=== PATIENT | female | born 1960 ===

== ENCOUNTER 2020-10-04 01:07 | Inpatient (IN) | payer SELFPAY ==
[~2020-10-04] VITALS: Ht 160 cm; Wt 58.5 kg
--- NOTE | 2020-10-04 01:16 | PHYS DOC ---
Past History Past Medical History: Alcoholism, COPD, Diabetes Smoking: Cigarettes Drug Use: Amphetamine, Cocaine, Marijuana General Adult EDM: Chief Complaint: COLD EXPOSURE HPI: HPI: " I don't know.. I am just cold...' Patient is a age 59year old female who presents with above hx and complaints of hypotherma. Pt. reportedly found in snow, wet and confused by Police after disturbance call of ' " arely potter" yelling. Pt. clothes all wet. Initial temp .95.7 axillary. Pt.confused and uncooperative. Pt. appears under influence of drugs. Pt. did have a crack pipe on her at time of caregiver services home arrival. Pt. very poor historian. Temp. 97.,4 her on arrival .. Pt. very poor historian. Review of Systems: Review of Systems: Constitutional: Complaints of chills Eyes: Denies change in visual acuity HENT: Denies nasal congestion or sore throat Respiratory: Hxz of cough Cardiovascular: Denies chest pain or edema GI: Denies abdominal pain, nausea, vomiting, bloody stools or diarrhea : Denies dysuria Musculoskeletal: Complains of joint pain Integument: Denies rash Neurologic: Denies headache, focal weakness or sensory changes Endocrine: Denies polyuria or polydipsia Lymphatic: Denies swollen glands Psychiatric: complains of anxiety Family History: Family History: Not currently available Current Medications: Current Meds: See Nursing for meds Allergies: Allergies: See Nursing Physical Exam: PE: Constitutional: moderate acute distress, appears under the influence of drugs HENT: Normocephalic, atraumatic, bilateral external ears normal, oropharynx moist, no oral exudates, nose normal. [] Edentulous Eyes: PERRLA, EOMI, conjunctiva normal, no discharge. [] Neck: Normal range of motion, no tenderness, supple, no stridor. [] Cardiovascular:Tachycardia Heart rate regular rhythm, no murmur [] Lungs & Thorax: Bilateral breath sounds equal apex with scattered wheezes on auscultation [] Abdomen: Bowel sounds normal, soft, no tenderness, no masses, no pulsatile masses. [] Skin: Warm, dry, no erythema, no rash. Poor tugor. Has decreased capillary return fingers and toes. Back: No tenderness, no CVA tenderness. [] Extremities: No tenderness, no cyanosis, no clubbing, ROM intact, no edema.Arthritic changes. Neurologic: Alert and oriented name, and know she at a medical area, moves all ext, has distal sensation, , obviously confused. Psychologic: Affect anxious, judgement imparied., mood normal. [] EKG: EKG: My interpretation EKG shows a sinus rate of 86. Some nonspecific contour changes, anterior septal area, no findings of acute STEMI or contralateral changes. [place] baseline [] Radiology/Procedures: Radiology/Procedures: [place] [address] IMAGING REPORT Signed PATIENT: HAM ZACARIAS ACCOUNT: [id number] : 1960 LOCATION: [address] [place] [address] AGE: 60 SEX: F EXAM STATUS: ADM IN ORD. PHYSICIAN: MARY ROGERS MD REASON: dyspnea PROCEDURE: PORTABLE CHEST 1V EXAM: XR CHEST 1V 10/04/2020 2:48 AM CLINICAL INDICATION: Dyspnea COMPARISON: None TECHNIQUE: AP upright view of the chest FINDINGS: The heart is normal in size. Thoracic aorta is ectatic or tortuous. Lungs are well-expanded and clear. No pleural effusion or pneumothorax. No acute osseous abnormality. IMPRESSION: No acute cardiopulmonary abnormality. Electronically signed by: Sigrid Becker MD (10/04/2020 5:17 AM) [id number] DICTATED AND SIGNED BY: SIGRID BECKER MD DATE: 10/04/20 0516 CC: MARY ROGERS MD; YADIRA CORDOVA MD; PCP,NO ~MTH0 0 [][address] [address] IMAGING REPORT Signed PATIENT: HAM ZACARIAS ACCOUNT: [id number] : 09/18/1961 LOCATION: ER AGE: 59 SEX: F EXAM STATUS: REG ER ORD. PHYSICIAN: MARY ROGERS MD REASON: alter mental status PROCEDURE: CT HEAD AND CERVICAL SPINE WO EXAM: CT head and cervical spine without contrast INDICATION: Altered mental status COMPARISON: None TECHNIQUE: Axial CT imaging through the head and cervical spine without intravenous contrast. Sagittal and coronal reformats were obtained. One or more of the following individualized dose reduction techniques were utilized for this examination: 1. Automated exposure control 2. Adjustment of the mA and/or kV according to patient size 3. Use of iterative reconstruction technique. FINDINGS: CT head: The ventricles and sulci are within normal limits. Gonzalez-white matter differentiation is maintained. There is no intracranial hemorrhage, acute infarct, or mass lesion. Basal cisterns are clear. The skull and scalp are intact. Paranasal sinuses and mastoid air cells are clear. Globes and orbits are intact.. CT cervical spine: No acute fracture. There is 2 mm anterolisthesis of C3 on C4, C4 on C5, and C5 on C6. Mild disc space narrowing. Multilevel facet arthrosis, greatest at C5-C6 on the left. Moderate foraminal narrowing at C3-C4 and C4-C5 on the right. Prevertebral soft tissue is normal. There is a 1 cm irregular nodule in the right apex. Mild centrilobular emphysema. IMPRESSION: 1. No acute intracranial abnormality. 2. No acute osseous abnormality. 3. 1 cm irregular pulmonary nodule in the right apex. Consider PET/CT or tissue sampling if possible to further evaluate or three-month follow-up CT to show stability. 2017 Fleischner Society guidelines for management of incidental pulmonary nodul es in adults over 35 years old. Radiology. Published online:?November 10, 2016 SINGLE SOLID NODULE <6mm Low risk*- No routine follow up High risk* - Optional CT at 12 months Comment: Nodules <6mm do not require routine follow-up, but certain patients at high risk with suspicious nodule morphology, upper lobe location, or both may warrant 12-month follow-up 6-8mm Low risk* - CT at 6-12 months, then consider CT at 18-24 months High risk* - CT at 6-12 months, then CT at 18-24 months >8mm Consider CT, PET/CT, or tissue sampling at 3 months MULTIPLE SOLID NODULES <6mm Low risk* - No routine follow-up High risk* - Optional CT at 12 months 6-8mm Low risk* - CT at 3-6 months, then consider CT at 18-24 months High risk* - CT at 3-6 months, then CT at 18-24 months >8mm Low risk* - CT at 3-6 months, then consider CT at 18-24 months High risk* - CT at 3-6 months, then CT at 18-24 months Comment: Use most suspicious nodule as guide to management. Follow-up intervals may vary according to size and risk. SUBSOLID NODULES Single < 6mm - No routine follow-up Single > 6mm - CT at 6-12 months to confirm persistence, the CT every 2 years until 5 years. Comment: In certain suspicious nodules <6mm, consider follow-up at 2 and 4 years. If solid components or growth develops, consider resection. Part solid < 6mm - No routine follow-up Part solid >6mm Ct at 3-6 months to confirm persistence. If unchanged and solid component remains <6mm, annual CT should be performed for 5 years. Comment: In practice, part-solid nodules cannot be defined as such until >6mm, and nodules <6mm do not usually require follow-up. Persistent part-solid nodules with solid components >6mm should be considered highly suspicious. Multiple <6mm - CT at 3-6 months. If stable consider CT at 2 and 4 years. Multiple >6mm - CT at 3-6 months. Subsequent management based on the most suspicious nodule. Comment: Multiple <6mm pure ground-glass nodules are usually benign, but consider follow-up in selected patients at high risk at 2 and 4 years. *Clinical risk - These guidelines for nodule management are based on estimation of the individual risk of malignancy. It is important to consider nodule size and morphology as well as smoking history, exposure to other carcinogens, emphysema, fibrosis, upper lobe location, family history of lung cancer, age, and sex is assessing clinical risk. For purposes of these guidelines it is recommended that risk be assigned according to the categories proposed by the [employer]. Low risk (less than 5%) - young age, less smoking, smaller nodule size, regular margins and location other than upper lobe. High risk (greater than 5%) - older age, heavy smoking, larger nodule size, irregular or spiculated margins and upper lobe location. Electronically signed by: Sigrid Becker MD (10/04/2020 3:45 AM) [id number] DICTATED AND SIGNED BY: SIGRID BECKER MD DATE: 10/04/20 0335 CC: MARY ROGERS MD; PCP,NO ~MTH0 0 Heart Score: HEART Score for Chest Pain: HEART Score for Chest Pain Response (Comments) Value History Moderately Suspicious 1 ECG Nonspecific Repolarizatio 1 Age >45 - < 65 1 Risk Factors 1 or 2 Risk Factors 1 Total 4 Risk Factors: Risk Factors: DM, Current or recent (<one month) smoker, HTN, HLP, family history of CAD, obesity. Risk Scores: Score 0 - 3: 2.5% MACE over next 6 weeks - Discharge Home Score 4 - 6: 20.3% MACE over next 6 weeks - Admit for Clinical Observation Score 7 - 10: 72.7% MACE over next 6 weeks - Early Invasive Strategies Course & Med Decision Making: Course & Med Decision Making Pertinent Labs and Imaging studies reviewed. (See chart for details) Critical Care:= 60 min. Discussed presentation, testing and tx plan with Dr. Cordova. Plan continue hydration. Monitor mental status. Glucose checks. Pt. mental status slowly improving. Admits to smoking Meth and Coke tonight. Know Hx. of diabetes. Pt. denies narcotic use. Pt. fall asleep with out constant noxious stimuli on questionings. Pt. advised ..." Fuck off... I need to sleep..." ".. I can't talk right now...".. " I was 'nt going.. to do shit to night..." Pt. did move all extremity on request with noxious stimuli and cross react.. 0400. Impression: 1. Hypothermia 2. Polysubstance abuse +, Coke, Meth, and MJ 3. Altered mental status 4. DM glucose 236 5. Mild Hypokalemia 6. Emphysema 7. Pulmonary Nodule Dragon Disclaimer: Dragon Disclaimer: This electronic medical record was generated, in whole or in part, using a voice recognition dictation system. Departure Departure: Referrals: PCP,NO (PCP) [place] Disclaimer This chart was dictated in whole or in part using Voice Recognition software in a busy, high-work load, and often noisy Emergency Department environment. It may contain unintended and wholly unrecognized errors or omissions. Dragon Disclaimer This chart was dictated in whole or in part using Voice Recognition software in a busy, high-work load, and often noisy Emergency Department environment. It may contain unintended and wholly unrecognized errors or omissions. MARY ROGERS MD Oct 04, 2020 01:16
[2020-10-04] MEDS ORDERED: IV RINGERS SOLUTION,LACTATED 1,000 ML IV SCH (01:30)
[2020-10-04 02:26] LABS: BASO # 0.1 x10^3/uL (0.0-0.2); BASO % 1 % (0-3); EOS # 0.2 x10^3/uL (0.0-0.7); EOS % 2 % (0-3); HEMATOCRIT 41.2 % (36.0-47.0); LYMPH # 2.2 x10^3/uL (1.0-4.8); LYMPH % 20 % (24-48); MEAN CORPUSCULAR HEMOGLOBIN 31 pg (25-35); MEAN CORPUSCULAR HGB CONC 34 g/dL (31-37); MEAN CORPUSCULAR VOLUME 92 fL (79-100); MONO # 0.7 x10^3/uL (0.0-1.1); MONO % 7 % (0-9); NEUT # 7.6 x10^3uL (1.8-7.7); NEUT % 70 % (31-73); PLATELET COUNT 377 x10^3/uL (140-400); RED BLOOD COUNT 4.49 x10^6/uL (3.50-5.40); RED CELL DISTRIBUTION WIDTH 13.3 % (11.5-14.5); WHITE BLOOD COUNT 10.8 x10^3/uL (4.0-11.0)
--- NOTE | 2020-10-04 02:30 | EKG ---
[address] [address] Test Date: 2020-10-04 Test Time: 02:22:37 Pat Name: HAM ZACARIAS Department: Room: Gender: F Fence Laborer: ALYSHA : 1961-09-18 Requested By: MARY ROGERS Order Number: [id number] Reading MD: Measurements Intervals [place]renberg Rate: 86 P: 52 IL: 186 QRS: 45 QRSD: 74 T: 67 QT: 382 QTc: 460 Interpretive Statements SINUS RHYTHM QRS(T) CONTOUR ABNORMALITY CONSISTENT WITH ANTEROSEPTAL INFARCT AGE UNDETERMINED ABNORMAL ECG RI6.02 No previous ECG available for comparison
[2020-10-04 02:41] LABS: BILIRUBIN,URINE NEG (NEG); CLARITY,URINE CLEAR; COLOR,URINE YELLOW; GLUCOSE,URINE >=1000 mg/dL (NEG); NITRITE,URINE NEG (NEG); UROBILINOGEN,URINE 0.2 mg/dL (0.2 mg/dL)
[2020-10-04 02:42] LABS: CALCIUM 9.4 mg/dL (8.5-10.1); CREATININE 0.5 mg/dL (0.6-1.0); GFR 125.4; POTASSIUM 3.2 mmol/L (3.5-5.1)
[2020-10-04 02:42] LABS: BACTERIA,URINE 0 /HPF (0-FEW); BARBITURATES NEG (NEG); BENZODIAZEPINES NEG (NEG); CANNABINOIDS POS (NEG); COCAINE POS (NEG); METHADONE NEG (NEG); OPIATES NEG (NEG); PHENCYCLIDINE NEG (NEG); RBC,URINE 0 /HPF (0-2)
[2020-10-04 02:46] LABS: AMPHETAMINE/METHAMPHETAMINE POS (NEG)
[2020-10-04 02:53] LABS: ALBUMIN 3.6 g/dL (3.4-5.0); DIRECT BILIRUBIN 0.1 mg/dL (0.0-0.2); MAGNESIUM 2.1 mg/dL (1.8-2.4); TOTAL BILIRUBIN 0.4 mg/dL (0.2-1.0); TOTAL PROTEIN 7.7 g/dL (6.4-8.2)
[2020-10-04] MEDS ORDERED: ACETAMINOPHEN 325 MG TABLET PO PRN (03:15)
[2020-10-04] MEDS ORDERED: ONDANSETRON PF 4 MG/2 ML VIAL. IVP PRN (03:15)
--- NOTE | 2020-10-04 03:48 | RAD ---
EXAM: CT head and cervical spine without contrast INDICATION: Altered mental status COMPARISON: None TECHNIQUE: Axial CT imaging through the head and cervical spine without intravenous contrast. Sagitta l and coronal reformats were obtained. One or more of the following individualized dose reduction techniques were utilized for this examinat ion: 1. Automated exposure control 2. Adjustment of the mA and/or kV according to patient size 3. Use of iterative reconstruction technique. FINDINGS: CT head: The ventricles and sulci are within normal limits. Gonzalez-white matter differentiation is maintained. There is no intracranial hemorrhage, acute infarct, or mass lesion. Basal cisterns are clear. The sku ll and scalp are intact. Paranasal sinuses and mastoid air cells are clear. Globes and orbits are int act.. CT cervical spine: No acute fracture. There is 2 mm anterolisthesis of C3 on C4, C4 on C5, and C5 on C6. Mild disc space narrowing. Multilevel facet arthrosis, greatest at C5-C6 on the left. Moderate foraminal narrowing a t C3-C4 and C4-C5 on the right. Prevertebral soft tissue is normal. There is a 1 cm irregular nodule in the right apex. Mild centrilobular emphysema. IMPRESSION: 1. No acute intracranial abnormality. 2. No acute osseous abnormality. 3. 1 cm irregular pulmonary nodule in the right apex. Consider PET/CT or tissue sampling if possible to further evaluate or three-month follow-up CT to show stability. 2017 Fleischner Society guidelines for management of incidental pulmonary nodules in adults over 35 y ears old. Radiology. Published online:?November 10, 2016 SINGLE SOLID NODULE <6mm Low risk*- No routine follow up High risk* - Optional CT at 12 months Comment: Nodules <6mm do not require routine follow-up, but certain patients at high risk with suspic ious nodule morphology, upper lobe location, or both may warrant 12-month follow-up 6-8mm Low risk* - CT at 6-12 months, then consider CT at 18-24 months High risk* - CT at 6-12 months, then CT at 18-24 months >8mm Consider CT, PET/CT, or tissue sampling at 3 months MULTIPLE SOLID NODULES <6mm Low risk* - No routine follow-up High risk* - Optional CT at 12 months 6-8mm Low risk* - CT at 3-6 months, then consider CT at 18-24 months High risk* - CT at 3-6 months, then CT at 18-24 months >8mm Low risk* - CT at 3-6 months, then consider CT at 18-24 months High risk* - CT at 3-6 months, then CT at 18-24 months Comment: Use most suspicious nodule as guide to management. Follow-up intervals may vary according to size and risk. SUBSOLID NODULES Single < 6mm - No routine follow-up Single > 6mm - CT at 6-12 months to confirm persistence, the CT every 2 years until 5 years. Comment: In certain suspicious nodules <6mm, consider follow-up at 2 and 4 years. If solid components or growth develops, consider resection. Part solid < 6mm - No routine follow-up Part solid >6mm Ct at 3-6 months to confirm persistence. If unchanged and solid component remains <6 mm, annual CT should be performed for 5 years. Comment: In practice, part-solid nodules cannot be defined as such until >6mm, and nodules <6mm do no t usually require follow-up. Persistent part-solid nodules with solid components >6mm should be consi dered highly suspicious. Multiple <6mm - CT at 3-6 months. If stable consider CT at 2 and 4 years. Multiple >6mm - CT at 3-6 months. Subsequent management based on the most suspicious nodule. Comment: Multiple <6mm pure ground-glass nodules are usually benign, but consider follow-up in select ed patients at high risk at 2 and 4 years. *Clinical risk - These guidelines for nodule management are based on estimation of the individual ris k of malignancy. It is important to consider nodule size and morphology as well as smoking history, exposure to other carcinogens, emphysema, fibrosis, upper lobe location, family history of lung cance r, age, and sex is assessing clinical risk. For purposes of these guidelines it is recommended that risk be assigned according to the categories proposed by the [employer]. Low risk (less than 5%) - young age, less smoking, smaller nodule size, regular margins and location other than upper lobe. High risk (greater than 5%) - older age, heavy smoking, larger nodule size, irregular or spiculated m argins and upper lobe location. Electronically signed by: Sigrid Becker MD (10/04/2020 3:45 AM) [id number]
--- NOTE | 2020-10-04 04:52 | NUR ---
The patient, HAM ZACARIAS, 60 y/o, F admitted by YADIRA DE LA PAZ MD, was given written information regarding hospital policies, unit procedures and contact persons. Valuables were checked and logged. Call light at bedside. Will continue to monitor.
[2020-10-04 04:57] VITALS: BP 115/63
--- NOTE | 2020-10-04 05:19 | RAD ---
EXAM: XR CHEST 1V 10/04/2020 2:48 AM CLINICAL INDICATION: Dyspnea COMPARISON: None TECHNIQUE: AP upright view of the chest FINDINGS: The heart is normal in size. Thoracic aorta is ectatic or tortuous. Lungs are well-expande d and clear. No pleural effusion or pneumothorax. No acute osseous abnormality. IMPRESSION: No acute cardiopulmonary abnormality. Electronically signed by: Sigrid Becker MD (10/04/2020 5:17 AM) [id number]
--- NOTE | 2020-10-04 05:43 | NUR ---
Patient states she is allergic to penicillin and codeine, and that she doesn't take any medications or have a regular pharmacy. Patient unable to answer questions about past medical history except as previously stated. Purse contains multiple items that appear to be drugs and drug paraphernalia. Purse sent to safe accordingly.
--- NOTE | 2020-10-04 07:03 | NUR ---
Patient refused morning breathing treatment.
[2020-10-04] MEDS ORDERED: IPRATRPIUM/ALBUTEROL 0.5/2.5MG 3 ML NEBU. NEB SCH (08:00)
[2020-10-04] MEDS ORDERED: IPRATRPIUM/ALBUTEROL 0.5/2.5MG 3 ML NEBU. NEB PRN (09:30)
[2020-10-04 10:56] VITALS: BP 114/78
[2020-10-04] MEDS: NICOTINE 14MG PATCH. TD SCH (11:37)
[2020-10-04] MEDS ORDERED: POTASSIUM CHLORIDE 20 MEQ TABLET.ER. PO ONE (12:30)
--- NOTE | 2020-10-04 14:14 | NUR ---
Patient becoming progressively more agitated over the course of the day. She had stated that she wanted to go get help, needed a cigarette and wanted to leave. I initially placed a nicotine patch on her left shoulder which didn't resolve the craving. Patient becoming increasingly more anxious and stated that she had to leave now. AMA paperwork provided to patient, nursing electrical maintenance supervisor bedside at this time. Called cab for patient and patient was escorted to front door with nursing electrical maintenance supervisor and security. Patient was placed in taxi and taken to designated address. Stable upon departure from [facility].
--- NOTE | 2020-10-04 22:39 | HP ---
ADMIT DATE: 10/04/2020 HISTORY OF PRESENT ILLNESS: The patient is a 60-year-old female patient who was brought to the Emergency Room with complaint of hypothermia. The patient reportedly found in snow, wet and confused by police after disturbance, called maximilianoemmanuel potter john. The patient's all clothes are wet. Her initial temperature was 95.7 axillary. She was confused and cooperative. She appeared under influence of drugs. The patient did have a crack pipe on her at the time of hunting guide arrival. She was a very poor historian. She was basically extensively investigated in the Emergency Room. Has had an EKG which showed that she was in sinus rhythm with a heart rate of 86 beats per minute, but no acute STEMI or contralateral changes. She has had a chest x-ray which showed that the patient's heart is normal in size. Thoracic aorta is ectatic and tortuous. Lungs are well expanded and clear, no pleural effusion or pneumothorax. No acute osseous abnormality. She did have a CT scan of the head and cervical spine without contrast, which showed no acute intracranial abnormality, no acute osseous abnormality. She has 1 cm irregular pulmonary nodule in the right apex. To consider PET and CT scan of tissue or sampling if possible for further evaluation or 3-month followup CT to show stability. Has had also lab work that was normal except mild hypokalemia, hyperglycemia. Urinalysis showed that she has marked glycosuria, otherwise was unremarkable and her toxic screen was positive for amphetamine, methamphetamine, cocaine, and cannabinoids. The patient was admitted with hypothermia, polysubstance abuse, altered mental status. She has type 1 diabetes mellitus, mild hypokalemia, emphysema, and pulmonary nodule. She was given a liter of lactated Ringer's and admitted, continued on a nicotine patch and nebulizer albuterol and Atrovent and ondansetron. PAST MEDICAL HISTORY: Significant for diabetes mellitus type 1, fibromyalgia, traumatic brain injury, posttraumatic stress disorder, severe anxiety, and diabetic peripheral neuropathy. She apparently has also a history of polysubstance abuse and she is addicted to amphetamine and she has been into the rehab 3 times. She was admitted to [facility] twice, one for rehabilitation and one for suicidal ideation. She is going for her fourth rehab to the [facility] in [place]. PAST SURGICAL HISTORY: Significant for appendectomy, total abdominal hysterectomy, left breast cancer status post left lumpectomy, and bilateral feet surgery. ALLERGIES: She is allergic to PENICILLIN and CODEINE. MEDICATIONS: She is currently on Lantus insulin 34 units at bedtime, NovoLog insulin sliding scale before meals, Effexor 150 mg once a day, Cymbalta 60 mg once a day, trazodone 100 mg at bedtime. She is on a baby aspirin 80 mg once a day, vitamin D 2 tablets once a day. She is also on Seroquel 12.5-25 mg as needed. REVIEW OF SYSTEMS: As per history of present illness. PHYSICAL EXAMINATION: GENERAL: On arrival to the Emergency Room, she was confused, but oriented. She was in moderate acute distress and appears to be under influence of drugs. However, there was no pallor, jaundice, cyanosis or thyromegaly. No jugular venous distention. No limb edema. VITAL SIGNS: Her heart rate was 91, blood pressure was 147/91, temperature was 97.4, respiratory rate was 16, and oxygen saturation was 96% on room air. HEAD, EYES, EARS, NOSE AND THROAT: Showed normocephalic, atraumatic. NECK: Supple. HEART: Showed normal first and second heart sounds. No gallop, rub or murmur. CHEST: Shows central trachea, equal bilateral expansion, air entry, vesicular sounds. No crepitation or rhonchi. ABDOMEN: Scaphoid, soft, nontender. NEUROLOGIC: She was confused; however, all her cranial nerves are intact. EXTREMITIES: She moves her extremities spontaneously. LABORATORY DATA: Showed that her white cell count was ____, hemoglobin 14, hematocrit 41, MCV 92, and platelet count 377,000 with normal manual differential. Her chemistry showed a serum sodium 138, potassium 3.2, chloride 100, bicarbonate 30, anion gap of 8, BUN 15, creatinine 0.5, estimated GFR was 125 mL per minute. Her glucose was 236, calcium was 9.4, magnesium was 2.1. Total bilirubin, AST, ALT, alkaline phosphatase were normal. Three sets of cardiac enzymes showed troponin to be less than 0.017. Beta natriuretic peptide was 70. Total protein 7.7, albumin was 3.6. Lipase was 45. TSH was 2.938. Prothrombin time, INR and aPTT are normal. Urinalysis showed the urine was yellow, clear with a pH of 5.5, specific gravity 1.025. There is small amount of protein, large amount of glucose. The urine was negative for ketones, blood, nitrite, bilirubin and leukocyte esterase. There are no RBC's, 1-4 WBC's and no bacteria. Her urine drug screen showed the patient was negative for opiates, methadone, barbiturates, phencyclidine, benzodiazepine, and alcohol; this was positive for methamphetamine, amphetamine, cocaine, and cannabinoids. ASSESSMENT AND PLAN: 1. In summary, this is a 60-year-old female patient who was admitted with altered mental status. 2. Hypothermia. 3. Polysubstance abuse including methamphetamine, cocaine, and marijuana. She is known to have type 1 diabetes mellitus. She has mild hypokalemia with potassium of 3.2, emphysema and she has also a pulmonary nodule. The patient was admitted for observation. We will monitor her closely and decide further management according to her progress. YADIRA DE LA PAZ MD DR: CICI/gonzalo JOB#: [id number] / [id number]
== END 2020-10-04 13:25 | disposition left against medical advice (07) | DRG 923 ==
LOC: ER 01:07 → EDBD 01:07 → 1 SOUTH 03:00
PROVIDERS: ADMIT Internal Medicine; ATTEND Internal Medicine
DX: T68.XXXA Hypothermia, initial encounter (principal); E10.42 Type 1 diabetes mellitus with diabetic polyneuropathy; E87.6 Hypokalemia; F12.10 Cannabis abuse, uncomplicated; F14.10 Cocaine abuse, uncomplicated; F43.10 Post-traumatic stress disorder, unspecified; J43.9 Emphysema, unspecified; M79.7 Fibromyalgia; F10.20 Alcohol dependence, uncomplicated; F41.9 Anxiety disorder, unspecified; R91.1 Solitary pulmonary nodule; Z79.4 Long term (current) use of insulin; Z85.3 Personal history of malignant neoplasm of breast; Z87.891 Personal history of nicotine dependence; Z90.710 Acquired absence of both cervix and uterus; W93.8XXA Exposure to other excessive cold of man-made origin, initial encounter; Z88.0 Allergy status to penicillin
CPT/HCPCS: 36415; 70450; 71045; 72125; 80048; 80076; 80307; 81001; 82550; 83690; 83735; 83880; 84443; 84484; 85025; 85610; 85730; 87040; 93005; 96360; 96361; G0480; J7120; 99291-25